=== PATIENT | male | born 1965 | race Caucasian/White ===

== ENCOUNTER 2020-04-05 08:15 | Outpatient (NON) | payer OTHER, SELFPAY ==
[2020-04-06 13:34] LABS: SARS-CoV-2 RNA PCR Negative
== END 2020-04-05 08:16 ==
PROVIDERS: PCP Family Medicine; Visit Provider Family Medicine
DX: Z20.828 Contact with and (suspected) exposure to other viral communicable diseases (principal)
CPT/HCPCS: 87635; C9803; U0003

== ENCOUNTER 2023-01-30 00:48 | Day surgery (SDC) | payer OTHER, SELFPAY ==
[2023-01-22 09:14] VITALS: BMI 28.9
--- NOTE | 2023-01-29 09:36 | WPDANESEPPF ---
Anes - Initial Pre Proc Eval Procedure: Operation Date: 01/30/23 07:30 Proposed Procedures p Screening Colonoscopy - Arjun Carrasco MD Date/Time: 01/29/23 09:36 Surgeon: Arjun Carrasco MD Pre Op Diagnosis: neoplasm screening Patient Data Age: 57 Gender: M Height: 1.75 m Weight: 88.8 kg Allergies Allergy/AdvReac Type Severity Reaction Status Date / Time No Known Allergies Allergy Verified 01/22/23 09:14 Home Medications Medication Instructions Recorded Confirmed Type levothyroxine 25 mcg tablet 25 mcg PO DAILY #90 tabs 04/03/22 01/22/23 Rx bupropion HCl 300 mg 24 hr tablet, 300 mg PO QAM #90 tabs 10/15/22 01/22/23 Rx extended release (Wellbutrin XL) metformin 500 mg tablet 1,000 mg PO BID #240 tabs 10/15/22 01/22/23 Rx semaglutide 0.25 mg or 0.5 mg (2 0.25 mg (0.2 mL) subcut WEEKLY 12/08/22 01/22/23 Rx mg/1.5 mL) subcutaneous pen #1.5 mL injector (OzSafaricrossic) sodium,potassium,mag sulfates 17.5 See Rx Instructions PO .COMPLEX 12/17/22 Rx gram-3.13 gram-1.6 gram oral soln #354 mL (Suprep Bowel Prep Kit) Patient hx anesthesia problems: none Family hx anesthesia problems: none Results Review: All pre-operative results and documents have been reviewed as part of the pre-operative evaluation. [facility] Past Medical History Medical History (Updated 10/14/22 @ 08:30 by ELISABETH Solis) Diabetes Elevated blood-pressure reading without diagnosis of hypertension Exposure to COVID-19 virus Hypertriglyceridemia Hypothyroidism Surgical History Surgical History History of root canal procedure Family History Family History Grandparent Diabetes mellitus Lung cancer Other Family history of anemia Social History Social History (Updated 10/14/22 @ 09:05 by ELISABETH Solis) Smoking status: Never smoker Second hand tobacco smoke exposure: No Alcohol intake: current Drinks per week: 1 Alcohol use details: 1-2 beers per month Substance use: never Substance use type: does not use Lack of Transportation: No Lack of Food: Never True Current Housing: I Have Housing Concerned About Future Housing: No Difficulty Paying Gas/Electric Bills: No Difficulty Paying for Meds: No Currently Unemployed: No Education: Associate Degree Difficulty w/ Childcare or Family Care: No Living arrangements: with family Occupation/Education: occupation Gender identity (if verbalized by the patient): Male Spiritual care concerns: No Anes - Eval Final PreProcedure Day of Procedure 01/29/23 09:36 Patient weight: overweight Heart: regular rate and rhythm Lungs: clear to auscultation Airway: Mallampati scale class II Neurological: alert and oriented Last oral intake: >/= 8 hours ASA classification: III Emergent: no Anesthetic plan: proceed Anesthesia type and monitoring: general GIVS and standard monitoring Results Review: All pre-operative results and documents have been reviewed as part of the pre-operative evaluation. Informed Consent: The patient's anesthetic plan and its attendant risks and benefits were discussed with the patient/family/POA. Questions were solicited and answers provided to the satisfaction of the patient/family/POA.
[2023-01-30 06:30] VITALS: BP 139/81; PULSE 76; RESP 18; TEMP 36.6; O2SAT 98; BMI 29.6
[2023-01-30] MEDS: LACTATED RINGERS 1,000 ML 150 ML IV CONT (06:44)
[2023-01-30 06:46] LABS: Glucose Point of Care 132 mg/dl (65-105)
--- NOTE | 2023-01-30 07:30 | PM.HPGS ---
History of Present Illness History of Present Illness Consent: Risks, benefits, and alternatives have been discussed and questions answered. Patient agrees to proceed with procedure. Chief complaint: neoplasm screening Narrative: Steve Jung is a 57 year old male Presents for screening colonoscopy. Patient's current weight appetite and bowel movements are normal. Patient denies abdominal pain. She has had no bleeding. Family history is noncontributory. Patient presents today for screening colonoscopy. Review of Systems Review of Systems: Review of systems noncontributory. [facility] Past Medical History Medical History (Updated 01/30/23 @ 07:31 by Arjun Carrasco MD) Diabetes Elevated blood-pressure reading without diagnosis of hypertension Exposure to COVID-19 virus Hypertriglyceridemia Hypothyroidism Surgical History Surgical History History of root canal procedure Family History Family History Grandparent Diabetes mellitus Lung cancer Other Family history of anemia Social History Social History (Updated 10/14/22 @ 09:05 by ELISABETH Solis) Smoking status: Never smoker Second hand tobacco smoke exposure: No Alcohol intake: current Drinks per week: 1 Alcohol use details: 1-2 beers per month Substance use: never Substance use type: does not use Lack of Transportation: No Lack of Food: Never True Current Housing: I Have Housing Concerned About Future Housing: No Difficulty Paying Gas/Electric Bills: No Difficulty Paying for Meds: No Currently Unemployed: No Education: Associate Degree Difficulty w/ Childcare or Family Care: No Living arrangements: with family Occupation/Education: occupation Gender identity (if verbalized by the patient): Male Spiritual care concerns: No Meds Home Medications and Allergies Home Medications Medication Instructions Recorded Confirmed Type levothyroxine 25 mcg tablet 25 mcg PO DAILY #90 tabs 04/03/22 01/22/23 Rx bupropion HCl 300 mg 24 hr tablet, 300 mg PO QAM #90 tabs 10/15/22 01/22/23 Rx extended release (Wellbutrin XL) metformin 500 mg tablet 1,000 mg PO BID #240 tabs 10/15/22 01/22/23 Rx semaglutide 0.25 mg or 0.5 mg (2 0.25 mg (0.2 mL) subcut WEEKLY 12/08/22 01/22/23 Rx mg/1.5 mL) subcutaneous pen #1.5 mL injector (Ozempic) sodium,potassium,mag sulfates 17.5 See Rx Instructions PO .COMPLEX 12/17/22 Rx gram-3.13 gram-1.6 gram oral soln #354 mL (Suprep Bowel Prep Kit) Allergies Allergy/AdvReac Type Severity Reaction Status Date / Time No Known Allergies Allergy Verified 01/22/23 09:14 Vital Signs Vital Signs - 24 hr 01/30/23 06:30 Temperature 97.8 F Pulse Rate 76 Respiratory Rate 18 Blood Pressure 139/81 Pulse Oximetry 98 Oxygen Delivery Room Air Exam Narrative: Physical exam reveals patient to be alert. Vital signs stable. HEENT exam is unremarkable. Patient is anicteric. Lungs are clear to auscultation and percussion. Heart is without murmur or extra sounds. Abdomen bowel sounds are present soft nontender with no organomegaly. Digital external rectal exam is normal. Assessment and Plan Assessment and plan (1) Encounter for screening colonoscopy: Code(s): Z12.11 - Encounter for screening for malignant neoplasm of colon Status: Acute Assessment and Plan: Patient presents today for screening colonoscopy. He appears to be at average risk for colon polyps. Further recommendations may be given after endoscopy.
[2023-01-30 07:55] VITALS: BP 111/77; PULSE 70; RESP 23; O2SAT 98
[2023-01-30 08:05] VITALS: BP 113/75; PULSE 66; RESP 25; O2SAT 99
[2023-01-30 08:15] VITALS: BP 128/87; PULSE 64; RESP 15; O2SAT 98
== END 2023-01-30 08:20 | disposition home or self-care (01) ==
PROVIDERS: PCP Family Medicine; Visit Provider Internal Medicine Gastroenterology
PROC: 0DJD8ZZ Inspection of Lower Intestinal Tract, Via Natural or Artificial Opening Endoscopic (ICD-10-PCS; CPT 45378; principal; 2023-01-30 07:30)
DX: Z12.11 Encounter for screening for malignant neoplasm of colon (principal); K64.8 Other hemorrhoids; E03.9 Hypothyroidism, unspecified; E11.9 Type 2 diabetes mellitus without complications; E78.1 Pure hyperglyceridemia; Z79.84 Long term (current) use of oral hypoglycemic drugs; Z79.899 Other long term (current) drug therapy
CPT/HCPCS: 45378; 82948; J2704; J7120

== ENCOUNTER 2024-05-09 11:35 | Outpatient (CLI) | payer OTHER, SELFPAY ==
--- NOTE | ~2024-05-09 | XR_ITS ---
Right Shoulder Technique: AP and axillary views were obtained. Clinical History: Pain Findings: No fracture or dislocation is seen. Osseous alignment is anatomic. The glenohumeral joint i s intact. There is mild AC joint degenerative change. Soft tissues are unremarkable. Impression: Mild AC degenerative joint change. Reviewed, dictated and finalized at location . Impression: Mild AC degenerative joint change.
== END 2024-05-09 11:36 ==
PROVIDERS: PCP Family Medicine; Visit Provider Family Medicine
DX: M19.011 Primary osteoarthritis, right shoulder (principal)
CPT/HCPCS: 73030